=== PATIENT | female | born 1950 | race Caucasian/White ===

== ENCOUNTER 2018-08-30 02:06 | Emergency (ER) | payer BC, MEDICARE ==
--- NOTE | 2018-08-30 02:42 | ERPHSYRPT ---
- History of Present Illness Time Seen by Provider: 08/30/18 02:36 Historian: patient, family, EMS Exam Limitations: no limitations Physician History: The patient is a 67-year-old female with her brought in by ambulance from home where about 3 hours ago she had a sudden onset of generalized abdominal pain followed by nausea, vomiting, and diarrhea. The pain was intense but has now led up significantly. The pain currently is more on the right side. She denies fever or chills. Her past medical history is significant for HTN and GERD. Timing/Duration: today, hour(s) (3), sudden, improved Activities at Onset: none Quality: sharpness Abdominal Pain Onset Location: generalized abdomen Pain Radiation: flank (right) Severity of Pain-Max: severe Severity of Pain-Current: mild Modifying Factors: Improves With: defecating, vomiting Associated Symptoms: diarrhea, nausea, vomiting Previous symptoms: no prior history Allergies/Adverse Reactions: latex Allergy (Mild, Verified 08/30/18 02:51) Hives Home Medications: Lasix 10 mg PO DAILY 01/09/12 [History] Omeprazole Magnesium [Prilosec Otc] 20 mg PO DAILY 04/14/14 [History] Oxycodone HCl/Acetaminophen [Oxycodon-Acetaminophen 7.5-325] 1 tablet PO DAILY 04/14/14 [History] Potassium Chloride 10 Meq Tab* [Klor Con 10 MEQ] 10 meq PO DAILY 04/14/14 [ History] Hx Tetanus, Diphtheria Vaccination/Date Given: Yes Hx Influenza Vaccination/Date Given: No Hx Pneumococcal Vaccination/Date Given: Yes - Review of Systems Constitutional: No Fever, No Chills Eyes: No Symptoms Ears, Nose, & Throat: No Symptoms Respiratory: No Cough, No Dyspnea Cardiac: No Chest Pain, No Edema, No Syncope Abdominal/Gastrointestinal: Abdominal Pain, Nausea, Vomiting, Diarrhea Genitourinary Symptoms: No Dysuria Musculoskeletal: No Back Pain, No Neck Pain Skin: No Rash Neurological: No Dizziness, No Focal Weakness, No Sensory Changes Psychological: No Symptoms Endocrine: No Symptoms Hematologic/Lymphatic: No Symptoms Immunological/Allergic: No Symptoms All Other Systems: Reviewed and Negative - Past Medical History Pertinent Past Medical History: Yes Neurological History: No Pertinent History ENT History: No Pertinent History Cardiac History: Hypertension, Other Respiratory History: No Pertinent History Endocrine Medical History: No Pertinent History Musculoskeletal History: Other GI Medical History: GERD History: No Pertinent History Psycho-Social History: No Pertinent History Female Reproductive Disorders: No Pertinent History - Past Surgical History Past Surgical History: Yes Neuro Surgical History: No Pertinent History Cardiac: No Pertinent History Respiratory: No Pertinent History Gastrointestinal: Cholecystectomy Genitourinary: No Pertinent History Musculoskeletal: Orthopedic Surgery Female Surgical History: No Pertinent History Other Surgical History: NECK SURGERY-FROZE A JOINT 3&4. RECENT RIGHT ROTATOR CUFF - Social History Smoking Status: Never smoker Exposure to second hand smoke: No Drug Use: none Patient Lives Alone: No - Nursing Vital Signs Nursing Vital Signs: Initial Vital Signs Temperature 98.3 F 08/30/18 02:33 Pain Scale Pain Intensity 6 - Physical Exam General Appearance: no apparent distress, alert, obese Eye Exam: PERRL/EOMI, eyes nml inspection Ears, Nose, Throat Exam: normal ENT inspection, pharynx normal, moist mucous membranes Neck Exam: normal inspection, non-tender, supple, full range of motion Respiratory Exam: normal breath sounds, lungs clear, No respiratory distress Cardiovascular Exam: regular rate/rhythm, normal heart sounds Gastrointestinal/Abdomen Exam: tenderness (right side) Pelvic Exam: not done Rectal Exam: not done Back Exam: normal inspection, normal range of motion, No CVA tenderness, No vertebral tenderness Extremity Exam: normal inspection, normal range of motion, pelvis stable Neurologic Exam: alert, oriented x 3, cooperative, normal mood/affect, nml cerebellar function, sensation nml, No motor deficits Skin Exam: normal color, warm, dry SpO2 Interpretation: normal O2 Delivery: Room Air - CT Exams Abdomen/Pelvis CT Interpretation: Tele-radiologist Report (per Dr Dean), Other (moderate wall thickening of descending colon/colitis; diverticulosis) Ordered Tests: Active Orders 24 hr Category Date Time Status Clean Catch Urine Specimen STAT Care 08/30/18 02:41 Active IV Insertion STAT Care 08/30/18 02:41 Active ABDOMEN AND PELVIS W/0 CONTRAS [CT] Stat Exams 08/30/18 02:41 Taken AMYLASE Stat Lab 08/30/18 03:15 Completed CBC W DIFF Stat Lab 08/30/18 03:15 Completed CMP Stat Lab 08/30/18 03:15 Completed LIPASE Stat Lab 08/30/18 03:15 Completed Lactic Acid Stat Lab 08/30/18 03:14 Completed TROPONIN Q3H Lab 08/30/18 03:15 Completed TROPONIN Q3H Lab 08/30/18 05:45 Ordered TROPONIN Q3H Lab 08/30/18 08:45 Ordered TROPONIN Q3H Lab 08/30/18 11:45 Ordered TROPONIN Q3H Lab 08/30/18 14:45 Ordered UA W/RFX UR CULTURE Stat Lab 08/30/18 03:05 Completed Medication Summary Discontinued Medications Generic Name Dose Route Start Last Admin Trade Name Freq PRN Reason Stop Dose Admin Sodium Chloride 1,000 mls @ 999 mls/hr 08/30/18 02:41 08/30/18 03:30 Sodium Chloride 0.9% 1000 Ml IV 08/30/18 03:41 999 mls/hr .Q1H1M STA Administration Sodium Chloride Confirm 08/30/18 03:25 Sodium Chloride 0.9% 1000 Ml Administered 08/30/18 03:26 Dose 1,000 mls @ ud .ROUTE .STK-MED ONE Morphine Sulfate 4 mg 08/30/18 02:41 08/30/18 03:30 Morphine Sulfate 4 Mg Inj IV 08/30/18 02:42 4 mg STAT ONE Administration Morphine Sulfate Confirm 08/30/18 03:25 Morphine Sulfate 4 Mg Inj Administered 08/30/18 03:26 Dose 4 mg .ROUTE .STK-MED ONE Ondansetron HCl 4 mg 08/30/18 02:41 08/30/18 03:31 Zofran 4 Mg/2 Ml Vial IV 08/30/18 02:42 4 mg STAT ONE Administration Ondansetron HCl Confirm 08/30/18 03:25 Zofran 4 Mg/2 Ml Vial Administered 08/30/18 03:26 Dose 4 mg .ROUTE .STK-MED ONE Lab/Rad Data: Laboratory Result Diagrams 08/30/18 03:15 08/30/18 03:15 Laboratory Results 08/30/18 08/30/18 08/30/18 Range/Units 03:15 03:15 03:15 WBC 15.6 H (4.0-10.5) K/mm3 RBC 4.30 (4.1-5.4) M/mm3 Hgb 14.1 (12.0-16.0) gm/dl Hct 41.9 (35-47) % MCV 97.4 (78-100) fl MCH 32.8 H (26-32) pg MCHC 33.7 (32-36) g/dl RDW 11.9 (11.5-14.0) % Plt Count 246 (150-450) K/mm3 MPV 9.4 (6-9.5) fl Gran % 82.2 H (36.0-66.0) % Eos # (Auto) 0.20 (0-0.5) Absolute Lymphs (auto) 1.66 (1.0-4.6) Absolute Monos (auto) 0.88 (0.0-1.3) Lymphocytes % 10.6 L (24.0-44.0) % Monocytes % 5.6 (0.0-12.0) % Eosinophils % 1.3 (0.00-5.0) % Basophils % 0.3 (0.0-0.4) % Absolute Granulocytes 12.84 H (1.4-6.9) Basophils # 0.04 (0-0.4) Sodium 136 L (137-145) mmol/L Potassium 3.8 (3.5-5.1) mmol/L Chloride 97 L (98-107) mmol/L Carbon Dioxide 32 H (22-30) mmol/L Anion Gap 11.1 (5-15) MEQ/L BUN 16 (7-17) mg/dL Creatinine 0.85 (0.52-1.04) mg/dL Estimated GFR > 60.0 ML/MIN Glucose 218 H (74-106) mg/dL Lactic Acid (0.4-2.0) Calcium 9.4 (8.4-10.2) mg/dL Total Bilirubin 0.60 (0.2-1.3) mg/dL AST 29 (14-36) U/L ALT 28 (0-35) U/L Alkaline Phosphatase 79 (38-126) U/L Troponin I < 0.012 (0.000-0.034) ng/mL Serum Total Protein 8.0 (6.3-8.2) g/dL Albumin 4.3 (3.5-5.0) g/dL Amylase 38 (30-110) U/L Lipase 55 (23-300) U/L Urine Color (YELLOW) Urine Appearance (CLEAR) Urine pH (5-6) Ur Specific [place] (1.005-1.025) Urine Protein (Negative) Urine Ketones (NEGATIVE) Urine Blood (0-5) Antonio/ul Urine Nitrite (NEGATIVE) Urine Bilirubin (NEGATIVE) Urine Urobilinogen (0-1) mg/dL Ur Leukocyte Esterase (NEGATIVE) Urine WBC (Auto) (0-5) /HPF Urine RBC (Auto) (0-2) /HPF U Epithel Cells (Auto) (FEW) /HPF Urine Bacteria (Auto) (NEGATIVE) /HPF Urine Culture Reflexed (NO) Urine Glucose (NEGATIVE) mg/dL 08/30/18 08/30/18 Range/Units 03:14 03:05 WBC (4.0-10.5) K/mm3 RBC (4.1-5.4) M/mm3 Hgb (12.0-16.0) gm/dl Hct (35-47) % MCV (78-100) fl MCH (26-32) pg MCHC (32-36) g/dl RDW (11.5-14.0) % Plt Count (150-450) K/mm3 MPV (6-9.5) fl Gran % (36.0-66.0) % Eos # (Auto) (0-0.5) Absolute Lymphs (auto) (1.0-4.6) Absolute Monos (auto) (0.0-1.3) Lymphocytes % (24.0-44.0) % Monocytes % (0.0-12.0) % Eosinophils % (0.00-5.0) % Basophils % (0.0-0.4) % Absolute Granulocytes (1.4-6.9) Basophils # (0-0.4) Sodium (137-145) mmol/L Potassium (3.5-5.1) mmol/L Chloride (98-107) mmol/L Carbon Dioxide (22-30) mmol/L Anion Gap (5-15) MEQ/L BUN (7-17) mg/dL Creatinine (0.52-1.04) mg/dL Estimated GFR ML/MIN Glucose (74-106) mg/dL Lactic Acid 1.6 (0.4-2.0) Calcium (8.4-10.2) mg/dL Total Bilirubin (0.2-1.3) mg/dL AST (14-36) U/L ALT (0-35) U/L Alkaline Phosphatase (38-126) U/L Troponin I (0.000-0.034) ng/mL Serum Total Protein (6.3-8.2) g/dL Albumin (3.5-5.0) g/dL Amylase (30-110) U/L Lipase (23-300) U/L Urine Color YELLOW (YELLOW) Urine Appearance CLEAR (CLEAR) Urine pH 6.0 (5-6) Ur Specific [place] 1.008 (1.005-1.025) Urine Protein NEGATIVE (Negative) Urine Ketones NEGATIVE (NEGATIVE) Urine Blood NEGATIVE (0-5) Antonio/ul Urine Nitrite NEGATIVE (NEGATIVE) Urine Bilirubin NEGATIVE (NEGATIVE) Urine Urobilinogen NEGATIVE (0-1) mg/dL Ur Leukocyte Esterase SMALL (NEGATIVE) Urine WBC (Auto) 6-10 (0-5) /HPF Urine RBC (Auto) NONE (0-2) /HPF U Epithel Cells (Auto) NONE (FEW) /HPF Urine Bacteria (Auto) NONE (NEGATIVE) /HPF Urine Culture Reflexed NO (NO) Urine Glucose 50 (NEGATIVE) mg/dL - Progress Progress: improved Counseled pt/family regarding: lab results, diagnosis, rad results - Departure Time of Disposition: 04:50 Departure Disposition: Home Clinical Impression: Gastroenteritis and colitis, viral Condition: Stable Critical Care Time: No Referrals: JENNIFER MARTINEZ [Primary Care Provider] - Additional Instructions: You have vomiting and diarrhea (gastroenteritis and colitis). You were given morphine 4 mg, Zofran 4 mg, and fluids by IV in the ER. Take Zofran 4 mg ODT every 6 hours as needed for nausea and vomiting. Follow-up with your primary medical doctor in one to 2 days if needed. Prescriptions: Ondansetron ODT 4 MG [Zofran Odt 4 mg] 4 mg PO Q6H PRN PRN #10 tab.rapdis PRN Reason: Nausea/Vomiting
[2018-08-30 03:17] LABS: BASOPHIL % 0.3 % (0.0-0.4); Basophil (Absolute #) 0.04 (0-0.4); Eosinophil % 1.3 % (0.00-5.0); Granulocyte Absolute (ANC) 12.84 (1.4-6.9); Granulocytes % 82.2 % (36.0-66.0); Hematocrit 41.9 % (35-47); Hemoglobin 14.1 gm/dl (12.0-16.0); Lymphocyte (Absolute #) 1.66 (1.0-4.6); Lymphocytes % 10.6 % (24.0-44.0); Mean Cell Volume 97.4 fl (78-100); Mean Corpuscular Hemoglobin 32.8 pg (26-32); Mean Corpuscular Hgb Concent. 33.7 g/dl (32-36); Mean Platelet Volume 9.4 fl (6-9.5); Monocyte (Absolute #) 0.88 (0.0-1.3); Monocytes % 5.6 % (0.0-12.0); Platelet Count 246 K/mm3 (150-450); Red Cell Distribution Width 11.9 % (11.5-14.0); White Blood Count 15.6 K/mm3 (4.0-10.5)
[2018-08-30] MEDS ORDERED: Sodium Chloride 0.9% 1000 ML 1,000 ML ONE (03:25)
[2018-08-30] MEDS ORDERED: MORPHINE SULFATE 4 MG INJ ONE (03:25)
[2018-08-30] MEDS ORDERED: Zofran 4 MG/2 ML VIAL ONE (03:25)
[2018-08-30 03:28] LABS: ALBUMIN 4.3 g/dL (3.5-5.0); ALKALINE PHOSPHATASE 79 U/L (38-126); AMYLASE 38 U/L (30-110); ANION GAP 11.1 MEQ/L (5-15); BLOOD UREA NITROGEN 16 mg/dL (7-17); CHLORIDE 97 mmol/L (98-107); Calcium 9.4 mg/dL (8.4-10.2); Carbon Dioxide 32 mmol/L (22-30); Creatinine 1 0.85 mg/dL (0.52-1.04); Glucose 218 mg/dL (74-106); LIPASE 55 U/L (23-300); Potassium 3.8 mmol/L (3.5-5.1); SGOT/AST 29 U/L (14-36); SGPT/ALT 28 U/L (0-35); SODIUM 136 mmol/L (137-145)
[2018-08-30] MEDS: MORPHINE SULFATE 4 MG INJ IV ONE (03:30)
[2018-08-30] MEDS: Sodium Chloride 0.9% 1000 ML 1,000 ML IV STA (03:30)
[2018-08-30] MEDS: Zofran 4 MG/2 ML VIAL IV ONE (03:31)
[2018-08-30 03:44] LABS: Appearance CLEAR (CLEAR); Bilirubin NEGATIVE (NEGATIVE); Blood NEGATIVE Ery/ul (0-5); Glucose 50 mg/dL (NEGATIVE); Ketones NEGATIVE (NEGATIVE); Leukocyte Esterase SMALL (NEGATIVE); Nitrite NEGATIVE (NEGATIVE); Protein,Urine Dip NEGATIVE (Negative); Specific Gravity 1.008 (1.005-1.025); Urobilinogen NEGATIVE mg/dL (0-1)
[2018-08-30 04:58] VITALS: BP 121/78; PULSE 102; O2SAT 94
--- NOTE | 2018-08-30 09:07 | XRAY ---
Indication: Abdominal pain. Nausea, vomiting, diarrhea. Multiple contiguous axial images obtained through the abdomen and pelvis without contrast as ordered. Comparison: September 29, 2005. Lung bases demonstrates mild bibasilar dependent atelectasis and new right base calcified granuloma. No infiltrate or effusion. Heart is not enlarged. Stomach is distended with food/fluid. Noncontrasted stomach and bowel loops appear nonobstructed. Normal appendix. Descending colon now demonstrates mild circumferential wall thickening with minimal stranding favoring colitis. Mild sigmoid diverticulosis without diverticulitis. Again previous cholecystectomy. New 1.8 cm left ovary cyst. No free fluid/air. A few tiny calcified splenic granulomas. Remaining liver, pancreas, spleen, adrenal glands, kidneys, ureters, bladder, uterus, ovaries appear unremarkable for noncontrast exam. Moderate aortoiliac calcifications without AAA. Osseous structures intact with mild multilevel degenerative changes. No ventral or inguinal hernias. Impression: 1. Descending colon wall thickening with stranding favoring colitis. 2. Sigmoid diverticulosis without diverticulitis. Comment: Preliminary interpretation was made by [facility]. No critical discrepancy. CT DI 22.94
== END 2018-08-30 05:04 | disposition home or self-care (01) ==
LOC: ED 02:06
DX: K52.9 Noninfective gastroenteritis and colitis, unspecified (principal); A08.4 Viral intestinal infection, unspecified; K21.9 Gastro-esophageal reflux disease without esophagitis; I10 Essential (primary) hypertension
CPT/HCPCS: 36415; 74176; 80053; 81001; 82150; 83605; 83690; 84484; 85025; 96360; 96374; 96375; 99284; J2270; J2405

== ENCOUNTER 2019-01-14 21:25 | Emergency (ER) | payer BC, MEDICARE ==
[2019-01-14 21:49] VITALS: O2SAT 93
[2019-01-14] MEDS ORDERED: Zofran 4 MG/2 ML VIAL IV ONE (22:15)
[2019-01-14] MEDS ORDERED: MORPHINE SULFATE 4 MG INJ IV ONE (22:15)
[2019-01-14] MEDS ORDERED: Sodium Chloride 0.9% 1000 ML 1,000 ML IV SCH (22:15)
[2019-01-14] MEDS ORDERED: NITRO-BID 2% UD PACKETS TOP ONE (22:15)
[2019-01-14] MEDS ORDERED: Nitrostat 0.4 MG (ED) SL ONE ×3 (22:15→22:47)
--- NOTE | 2019-01-14 22:15 | ERPHSYRPT ---
- History of Present Illness Time Seen by Provider: 01/14/19 21:38 Historian: patient Exam Limitations: clinical condition Patient Subjective Stated Complaint: STATES STARTED HAVING CHEST PAIN ABOUT 2-3 HOURS AGO IN CENTER OF CHEST, RADIATING DOWN LEFT ARM. NO JAW PAIN, NO NAUSEA, VOMITING, DIAPHORESIS. TOOK 81MG ASPIRIN TODAY Triage Nursing Assessment: PT AMBULATED TO TREATMENT ROOM, C/O CHEST PAIN IN CENTER OF CHEST RADIATING TO LEFT ARM, NO C/O N/V OR DIAPHORESIS. SKIN PINK WARM AND DRY, RESP EASY. SR ON TECHNICAL ASSISTANCE CONSULTANT. Physician History: PATIENT WITH A HISTORY OF MYOCARDIAL INFARCTION 2016, STENT INSERTION X1 COMPLAINS OF SUBSTERNAL HEAVINESS OVER THE PAST 3 HOURS, PAIN SCALE INITIALLY 9/ 10, TOOK NITROGLYCERIN SUBLINGUAL AND 1 BABY ASPIRIN, PAIN SCALE IMPROVED TO 7/ 10. HAS ASSOCIATED DYSPNEA, RADIATION OF PAIN TO LEFT ARM Timing/Duration: today Activities at Onset: none Location: substernal Chest Pain Radiation: arm Severity of Pain-Max: severe Severity of Pain-Current: severe Modifying Factors: Improves With: nitroglycerin Associated Symptoms: shortness of breath Prior Chest Pain/Cardiac Workup: cardiac cath (MYOCARDIAL INFARCTION 2015) Nitro Today/Relief: 0.4 mg x 1, provided at home Aspirin Treatment Today: 81 mg x 1, provided at home Allergies/Adverse Reactions: latex Allergy (Mild, Verified 08/30/18 02:51) Hives Home Medications: Lasix 20 mg PO DAILY 01/09/12 [History] Oxycodone HCl/Acetaminophen [Oxycodon-Acetaminophen 7.5-325] 1 tablet PO Q4HPRN PRN 04/14/14 [History] Potassium Chloride 10 Meq Tab* [Klor Con 10 MEQ] 10 meq PO DAILY 04/14/14 [ History] Aspirin 81 mg PO DAILY 01/14/19 [History] Cyclobenzaprine HCl 10 mg [Cyclobenzaprine 10 MG] 10 mg PO BID 01/14/19 [ History] Esomeprazole Magnesium [Nexium] 40 mg PO DAILY 01/14/19 [History] Ezetimibe 10 mg [Zetia 10 MG] 10 mg PO DAILY 01/14/19 [History] Gabapentin 300 mg PO TID 01/14/19 [History] Hyoscyamine Sulfate 0.125 mg [Anaspaz 0.125 mg] 0.125 mg PO Q4H PRN PRN 03/27 [History] Isosorbide Mononitrate 60 mg [Imdur 60MG] 60 mg PO DAILY 01/14/19 [History] Magnesium Oxide 400 mg [Mag-Ox 400] 400 mg PO DAILY 01/14/19 [History] Metoprolol Tartrate 50 mg PO BID 01/14/19 [History] Simvastatin 20Mg [Zocor 20Mg] 20 mg PO DAILY 01/14/19 [History] Trazodone HCl 100 mg PO HS 01/14/19 [History] Hx Tetanus, Diphtheria Vaccination/Date Given: No Hx Influenza Vaccination/Date Given: Yes Hx Pneumococcal Vaccination/Date Given: No Immunizations Up to Date: Yes - Review of Systems Constitutional: No Fever, No Chills Eyes: No Symptoms Ears, Nose, & Throat: No Symptoms Respiratory: No Symptoms, Dyspnea, No Cough Cardiac: Chest Pain, No Edema, No Syncope Abdominal/Gastrointestinal: No Symptoms, No Abdominal Pain, No Nausea, No Vomiting, No Diarrhea Genitourinary Symptoms: No Symptoms, No Dysuria Musculoskeletal: No Symptoms, No Back Pain, No Neck Pain Skin: No Rash Neurological: No Dizziness, No Focal Weakness, No Sensory Changes Psychological: No Symptoms Endocrine: No Symptoms All Other Systems: Reviewed and Negative - Past Medical History Pertinent Past Medical History: Yes Neurological History: No Pertinent History ENT History: No Pertinent History Cardiac History: Hypertension, Other Respiratory History: No Pertinent History Endocrine Medical History: No Pertinent History Musculoskeletal History: Other GI Medical History: GERD History: No Pertinent History Psycho-Social History: No Pertinent History Female Reproductive Disorders: No Pertinent History - Past Surgical History Past Surgical History: Yes Neuro Surgical History: No Pertinent History Cardiac: Cardiac Catheterization Respiratory: No Pertinent History Gastrointestinal: Cholecystectomy Genitourinary: No Pertinent History Musculoskeletal: Orthopedic Surgery Female Surgical History: No Pertinent History Other Surgical History: NECK SURGERY-FROZE A JOINT 3&4. RECENT RIGHT ROTATOR CUFF. CARDIAC CATH WITH STENT PLACED IN 2014 - Social History Smoking Status: Never smoker Exposure to second hand smoke: No Drug Use: none Patient Lives Alone: No - Female History Hx Now: No - Nursing Vital Signs Nursing Vital Signs: Initial Vital Signs Temperature 99.0 F 01/14/19 21:26 Pulse Rate 80 01/14/19 21:26 Respiratory Rate 16 01/14/19 21:26 Blood Pressure 184/109 01/14/19 21:26 O2 Sat by Pulse Oximetry 93 L 01/14/19 21:26 Pain Scale Pain Intensity 6 - Physical Exam General Appearance: mild distress Eye Exam: PERRL/EOMI Ears, Nose, Throat Exam: normal ENT inspection Neck Exam: normal inspection Respiratory Exam: normal breath sounds Cardiovascular Exam: regular rate/rhythm Gastrointestinal/Abdomen Exam: soft, normal bowel sounds Back Exam: normal inspection, normal range of motion Extremity Exam: normal inspection, normal range of motion Neurologic Exam: alert, oriented x 3 Skin Exam: normal color SpO2 Interpretation: normal SpO2: 93 O2 Delivery: Room Air - Course EKG Interpreted by Me: RATE, Sinus Rhythm, NORMAL AXIS - Radiology Exams Chest X-ray Interpretation: Interpreted by me, Negative, No Infiltrates Ordered Tests: Active Orders 24 hr Category Date Time Status Bi Architect STAT Care 01/14/19 22:17 Active EKG-ER Only STAT Care 01/14/19 22:15 Active IV Insertion STAT Care 01/14/19 22:15 Active Oxygen-ED Only Nasal Cannula 2 lpm Care 01/14/19 22:15 Active CHEST 1 VIEW (PORTABLE) Stat Exams 01/14/19 22:16 Taken CBC W DIFF Stat Lab 01/14/19 22:33 Completed CMP Stat Lab 01/14/19 22:33 Completed D-DIMER QUANTITATION Stat Lab 01/14/19 22:33 Completed NT PRO BNP Stat Lab 01/14/19 22:33 Completed PROTIME WITH INR Stat Lab 01/14/19 22:33 Completed TROPONIN Q3H Lab 01/14/19 22:33 Completed Medication Summary Generic Name Dose Route Start Last Admin Trade Name Freq PRN Reason Stop Dose Admin Sodium Chloride 1,000 mls @ 50 mls/hr 01/14/19 22:15 01/14/19 22:28 Sodium Chloride 0.9% 1000 Ml IV 02/13/19 22:14 50 mls/hr .Q20H RAFITA Administration Discontinued Medications Generic Name Dose Route Start Last Admin Trade Name Freq PRN Reason Stop Dose Admin Enoxaparin Sodium 80 mg 01/14/19 23:44 01/15/19 00:08 Enoxaparin Sodium SQ 01/14/19 23:45 80 mg STAT ONE Administration Enoxaparin Sodium Confirm 01/15/19 00:07 Enoxaparin Sodium Administered 01/15/19 00:08 Dose 80 mg SQ .STK-MED ONE Morphine Sulfate 4 mg 01/14/19 22:15 01/14/19 22:33 Morphine Sulfate 4 Mg Inj IV 01/14/19 22:16 4 mg STAT ONE Administration Morphine Sulfate Confirm 01/14/19 22:24 Morphine Sulfate 4 Mg Inj Administered 01/14/19 22:25 Dose 4 mg .ROUTE .STK-MED ONE Nitroglycerin 0.4 mg 01/14/19 22:15 01/14/19 22:33 Nitrostat 0.4 Mg (Ed) SL 01/14/19 22:16 0.4 mg STAT ONE Administration Nitroglycerin 1 gm 01/14/19 22:15 01/14/19 22:33 Nitro-Bid 2% Ud Packets TOP 01/14/19 22:16 1 gm STAT ONE Administration Nitroglycerin Confirm 01/14/19 22:24 Nitro-Bid 2% Ud Packets Administered 01/14/19 22:25 Dose 1 gm .ROUTE .STK-MED ONE Nitroglycerin Confirm 01/14/19 22:24 Nitrostat 0.4 Mg (Ed) Administered 01/14/19 22:25 Dose 0.4 mg SL .STK-MED ONE Nitroglycerin 0.4 mg 01/14/19 22:47 01/14/19 22:49 Nitrostat 0.4 Mg (Ed) SL 01/14/19 22:48 0.4 mg STAT ONE Administration Ondansetron HCl 4 mg 01/14/19 22:15 01/14/19 22:34 Zofran 4 Mg/2 Ml Vial IV 01/14/19 22:16 4 mg STAT ONE Administration Ondansetron HCl Confirm 01/14/19 22:24 Zofran 4 Mg/2 Ml Vial Administered 01/14/19 22:25 Dose 4 mg .ROUTE .STK-MED ONE Lab/Rad Data: Laboratory Result Diagrams 01/14/19 22:33 01/14/19 22:33 Laboratory Results 01/14/19 01/14/19 01/14/19 Range/Units 22:33 22:33 22:33 WBC (4.0-10.5) K/mm3 RBC (4.1-5.4) M/mm3 Hgb (12.0-16.0) gm/dl Hct (35-47) % MCV (78-100) fl MCH (26-32) pg MCHC (32-36) g/dl RDW (11.5-14.0) % Plt Count (150-450) K/mm3 MPV (6-9.5) fl Gran % (36.0-66.0) % Eos # (Auto) (0-0.5) Absolute Lymphs (auto) (1.0-4.6) Absolute Monos (auto) (0.0-1.3) Lymphocytes % (24.0-44.0) % Monocytes % (0.0-12.0) % Eosinophils % (0.00-5.0) % Basophils % (0.0-0.4) % Absolute Granulocytes (1.4-6.9) Basophils # (0-0.4) PT 11.1 (9.95-12.35) SECONDS INR 0.95 (0.8-3.0) D-Dimer 479 (215-500) ng/mL Sodium (137-145) mmol/L Potassium (3.5-5.1) mmol/L Chloride (98-107) mmol/L Carbon Dioxide (22-30) mmol/L Anion Gap (5-15) MEQ/L BUN (7-17) mg/dL Creatinine (0.52-1.04) mg/dL Estimated GFR ML/MIN Glucose (74-106) mg/dL Calcium (8.4-10.2) mg/dL Total Bilirubin (0.2-1.3) mg/dL AST (14-36) U/L ALT (0-35) U/L Alkaline Phosphatase (38-126) U/L Troponin I < 0.012 (0.000-0.034) ng/mL NT-Pro-B Natriuret Pep (0-900) pg/mL Serum Total Protein (6.3-8.2) g/dL Albumin (3.5-5.0) g/dL 01/14/19 01/14/19 Range/Units 22:33 22:33 WBC 6.7 (4.0-10.5) K/mm3 RBC 3.90 L (4.1-5.4) M/mm3 Hgb 12.8 (12.0-16.0) gm/dl Hct 38.0 (35-47) % MCV 97.4 (78-100) fl MCH 32.8 H (26-32) pg MCHC 33.7 (32-36) g/dl RDW 11.7 (11.5-14.0) % Plt Count 225 (150-450) K/mm3 MPV 9.7 H (6-9.5) fl Gran % 49.6 (36.0-66.0) % Eos # (Auto) 0.29 (0-0.5) Absolute Lymphs (auto) 2.39 (1.0-4.6) Absolute Monos (auto) 0.62 (0.0-1.3) Lymphocytes % 35.8 (24.0-44.0) % Monocytes % 9.3 (0.0-12.0) % Eosinophils % 4.3 (0.00-5.0) % Basophils % 1.0 (0.0-0.4) % Absolute Granulocytes 3.31 (1.4-6.9) Basophils # 0.07 (0-0.4) PT (9.95-12.35) SECONDS INR (0.8-3.0) D-Dimer (215-500) ng/mL Sodium 140 (137-145) mmol/L Potassium 4.4 (3.5-5.1) mmol/L Chloride 99 (98-107) mmol/L Carbon Dioxide 33 H (22-30) mmol/L Anion Gap 13.1 (5-15) MEQ/L BUN 11 (7-17) mg/dL Creatinine 0.80 (0.52-1.04) mg/dL Estimated GFR > 60.0 ML/MIN Glucose 155 H (74-106) mg/dL Calcium 9.4 (8.4-10.2) mg/dL Total Bilirubin 0.30 (0.2-1.3) mg/dL AST 27 (14-36) U/L ALT 18 (0-35) U/L Alkaline Phosphatase 64 (38-126) U/L Troponin I (0.000-0.034) ng/mL NT-Pro-B Natriuret Pep 105 (0-900) pg/mL Serum Total Protein 7.5 (6.3-8.2) g/dL Albumin 3.9 (3.5-5.0) g/dL - Progress Progress: improved Progress Note: 01/14/19 23:53 ADMINISTERED BABY ASA X 3, NTG SL X 2, APPLICATION NITROPASTE 1" ANTERIOR CHEST WALL, ZOFRAN 4MG, MORPHINE 4MG IV. CHEST PAIN IMPROVED TO PAIN SCALE 3/10, LOVENOX 80MG SUBQ 01/15/19 01:24, 01/15/19 01:27 Discussed with : Other (DISCUSSED WITH DR MANDEL AT 0030 ACCEPTS TRANSFER TO [facility]) - Departure Departure Disposition: Transfer Clinical Impression: ACUTE CHEST PAIN Condition: Stable Critical Care Time: No Referrals: JENNIFER MARTINEZ [Primary Care Provider] - Additional Instructions: CONTINUE ALL CURRENT MEDICATIONS. CONSULTY YOUR PRIMARY CARE PROVIDER FOR FOLLOWUP WELL YOUR ECONOMICS PROFESSOR. RETURN TO EMERGENCY ROOM FOR CHEST PAIN.
[2019-01-14] MEDS ORDERED: NITRO-BID 2% UD PACKETS ONE (22:24)
[2019-01-14] MEDS ORDERED: MORPHINE SULFATE 4 MG INJ ONE (22:24)
[2019-01-14] MEDS ORDERED: Zofran 4 MG/2 ML VIAL ONE (22:24)
[2019-01-14] MEDS ORDERED: Sodium Chloride 0.9% 1000 ML 1,000 ML ONE (22:25)
[2019-01-14 22:29] LABS: Basophil (Absolute #) 0.07 (0-0.4); Eosinophil % 4.3 % (0.00-5.0); Eosinophil (Absolute #) 0.29 (0-0.5); Granulocyte Absolute (ANC) 3.31 (1.4-6.9); Granulocytes % 49.6 % (36.0-66.0); Hemoglobin 12.8 gm/dl (12.0-16.0); Lymphocyte (Absolute #) 2.39 (1.0-4.6); Lymphocytes % 35.8 % (24.0-44.0); Mean Cell Volume 97.4 fl (78-100); Mean Corpuscular Hemoglobin 32.8 pg (26-32); Mean Corpuscular Hgb Concent. 33.7 g/dl (32-36); Mean Platelet Volume 9.7 fl (6-9.5); Monocyte (Absolute #) 0.62 (0.0-1.3); Monocytes % 9.3 % (0.0-12.0); Platelet Count 225 K/mm3 (150-450); Red Cell Distribution Width 11.7 % (11.5-14.0); White Blood Count 6.7 K/mm3 (4.0-10.5)
[2019-01-14 22:35] LABS: INR 0.95 (0.8-3.0); PROTIME 11.1 SECONDS (9.95-12.35)
[2019-01-14 22:49] LABS: ALBUMIN 3.9 g/dL (3.5-5.0); ALKALINE PHOSPHATASE 64 U/L (38-126); ANION GAP 13.1 MEQ/L (5-15); BLOOD UREA NITROGEN 11 mg/dL (7-17); CHLORIDE 99 mmol/L (98-107); Calcium 9.4 mg/dL (8.4-10.2); Carbon Dioxide 33 mmol/L (22-30); Glucose 155 mg/dL (74-106); NT PRO BNP 105 pg/mL (0-900); Potassium 4.4 mmol/L (3.5-5.1); SGOT/AST 27 U/L (14-36); SGPT/ALT 18 U/L (0-35); SODIUM 140 mmol/L (137-145); Total Protein 7.5 g/dL (6.3-8.2)
[2019-01-14] MEDS ORDERED: ENOXAPARIN SODIUM SQ ONE (23:44)
[2019-01-15] MEDS ORDERED: ENOXAPARIN SODIUM SQ ONE (00:07)
[2019-01-15 01:54] VITALS: BP 141/75; PULSE 68
--- NOTE | 2019-01-15 07:22 | XRAY ---
Indication: Dyspnea. Chest pain. Comparison: April 14, 2014. Portable apical lordotic chest demonstrates minimal left mid lung peripheral fibrosis/scarring. Remaining heart and lungs normal. Bony thorax intact again with mild degenerative changes and partially visualized lower cervical hardware.
== END 2019-01-15 01:56 | disposition short-term general hospital (02) ==
LOC: ED 21:25
DX: R07.9 Chest pain, unspecified (principal); I10 Essential (primary) hypertension; I25.2 Old myocardial infarction; Z79.899 Other long term (current) drug therapy
CPT/HCPCS: 36000; 36415; 71045; 80053; 83880; 84484; 85025; 85379; 85610; 93005; 93041; 96372; 96374; 96375; 99285; 99291; J1650; J2270; J2405; A9270-GY

== ENCOUNTER 2019-09-19 06:09 | Day surgery (SDC) | payer BC, MEDICARE ==
[2019-09-19] MEDS ORDERED: Lactated Ringers 1,000 ML IV SCH (06:30)
[2019-09-19] MEDS ORDERED: SUBLIMAZE 100 MCG/2 ML ONE (07:52)
[2019-09-19] MEDS ORDERED: DIPRIVAN 200 MG/20 ML IV ONE (07:52)
[2019-09-19] MEDS ORDERED: Decadron 4 MG INJ ONE (08:10)
[2019-09-19] MEDS ORDERED: TORAdol 30 mg Injection ONE (08:10)
[2019-09-19] MEDS ORDERED: Zofran 4 MG/2 ML VIAL ONE (08:10)
[2019-09-19 09:25] VITALS: O2SAT 95
[2019-09-19 09:45] VITALS: BP 129/78; PULSE 85
--- NOTE | 2019-09-20 12:43 | OP ---
SURGERY DATE/TIME: 09/19/2019 0752 PREOPERATIVE DIAGNOSES: 1) Thickened endometrium. 2) Endometrial polyp. POSTOPERATIVE DIAGNOSES: 1) Thickened endometrium. 2) Endometrial polyp. 3) Endometrial lesion. PROCEDURE: Hysteroscopy, D&C with resection of endometrial lesion. SURGEON: French Gary D.O. GROUND WIRER: senior telecommunications technician. ANESTHESIA: General. ESTIMATED BLOOD LOSS: Minimal. COMPLICATIONS: None. INDICATIONS: The risks, benefits, indications and alternatives of the procedure were reviewed with the patient prior to procedure. The patient understood the risk of infection, bleeding, bowel injury, bladder injury, ureteral injury and uterine perforation associated with the surgery and desires to have this surgery as a possible need to alleviate her current medical condition. DESCRIPTION OF PROCEDURE AND FINDINGS: At this point the patient is taken to the operating room, given general sedation, placed in dorsal lithotomy position. Prepped and draped in the usual sterile fashion. A weighted speculum is then placed in the patient's vagina and the anterior lip of the cervix is grasped with a single tooth tenaculum. Endocervical dilators advanced to the endocervical canal as a means to dilate the cervix and at this point a 5 mm hysteroscope was then placed in through the endocervical canal where visualization of the uterine lining appeared to have two endometriotic lesions/polypoid lesions appearing just on the posterior surface approximately 1 x 1 cm in dimension for each of them. From this point the MyoSure was then introduced into the endocervical canal where the MyoSure was then turned on and resection of the polypoid lesions were removed without any kind of complication with no bleeding that was noted. After completion of the MyoSure removal of the endometrial lesion there were no gross abnormalities within the endometrial canal. From this point the MyoSure was removed and curette was then placed into the fundus of the uterus and curettage was performed in all quadrants of the uterus retrieving mild amount of tissue. From this point all instruments were then subsequently removed from the patient's vaginal region. The patient was then taken out of the dorsal lithotomy position, was taken out of anesthesia and was then taken to the recovery room in stable condition. All instruments and laps were accounted for x2.
== END 2019-09-19 09:49 | disposition home or self-care (01) ==
LOC: SDC 06:09
PROVIDERS: ATTEND Obstetrics & Gynecology
DX: N84.0 Polyp of corpus uteri (principal); R93.89 Abnormal findings on diagnostic imaging of other specified body structures; Z79.899 Other long term (current) drug therapy; I10 Essential (primary) hypertension
CPT/HCPCS: 58558; 88305; J1100; J1885; J2405; J2704; J3010

== ENCOUNTER 2024-08-30 06:11 | Day surgery (SDC) | payer MEDICARE, OTHER ==
[2024-08-30] MEDS: CEFAZOLIN 2 GM/100 ML NaCl 2 GM/100 ML IVPB IV SCH (06:26)
[2024-08-30] MEDS: Lactated Ringers 1,000 ML IV SCH (06:26)
[2024-08-30 06:45] LABS: Absolute Neutrophil Ct (ANC) 2.63 x10^3/uL (1.56-6.13); BASOPHIL % 1.4 % (0.1-1.2); Basophil (Absolute #) 0.07 x10^3/uL (0.01-0.08); Eosinophil % 5.3 % (0.7-5.8); Eosinophil (Absolute #) 0.26 x10^3/uL (0.04-0.36); Hematocrit 35.4 % (34.1-44.9); IMMATURE GRAN # 0.02 x10^3u/L (0.001-0.031); IMMATURE GRAN % 0.4 % (0.001-0.429); Lymphocyte (Absolute #) 1.52 x10^3/uL (1.18-3.74); Lymphocytes % 30.8 % (19.3-51.7); Mean Cell Volume 94.9 fL (79.4-94.8); Mean Corpuscular Hemoglobin 32.2 pg (25.6-32.2); Mean Corpuscular Hgb Concent. 33.9 g/dL (32.2-35.5); Mean Platelet Volume 9.5 fL (9.4-12.3); Monocyte (Absolute #) 0.44 x10^3/uL (0.24-0.86); Monocytes % 8.9 % (4.7-12.5); Neutrophil % 53.2 % (34.0-71.1); Platelet Count 212 x10^3/uL (182-369); Red Blood Count 3.73 x10^6/uL (3.93-5.22); Red Cell Distribution Width 11.6 % (11.7-14.4); White Blood Count 4.9 x10^3/uL (3.98-10.04)
[2024-08-30 06:50] VITALS: RESP 18
[2024-08-30 06:59] LABS: INR 0.99 (0.8-3.0); PROTIME 10.8 SECONDS (9.4-12.5); PTT 27.9 SECONDS (25.1-36.5)
[2024-08-30 07:05] LABS: ANION GAP 11.2 MEQ/L (5-15); BILIRUBIN,TOTAL 0.3 mg/dL (0.2-1.3); Calcium 9.3 mg/dL (8.4-10.2); Creatinine 1 1.2 mg/dL (0.52-1.04); EST GLOMERULAR FILTRATION RATE 48.4 ML/MIN; Potassium 4.2 mmol/L (3.5-5.1); Total Protein 7.3 g/dL (6.3-8.2)
--- NOTE | 2024-08-30 07:10 | XRAY ---
CLINICAL HISTORY: pre op COMPARISON: No prior studies are available for comparison. TECHNIQUE: An X-ray image of the chest was obtained in AP projection. FINDINGS: Pulmonary Parenchyma: No evidence of consolidation, collapse, or focal opacities. No pulmonary nodules are identified. Mild prominent bronchovascular markings No evidence of pleural effusion or pleural thickening. Heart and Mediastinum: Calcific atherosclerotic plaques of the aorta. Heart size and shape are normal. No mediastinal widening or masses. No hilar or mediastinal lymphadenopathy. Bony Thorax: Thoracic spondylosis is seen as sclerosed end plates and osteophytes. Bilateral acromioclavicular joint arthropathy. Bony thorax appears intact without fractures or deformities. Soft Tissues: Soft tissues overlying the chest wall are unremarkable. IMPRESSION: 1. No acute cardiopulmonary abnormalities are identified. 2. Mild prominent bronchovascular markings. 3. Calcific atherosclerotic plaques of the aorta. 4. Thoracic spondylosis. 5. Bilateral acromioclavicular joint arthropathy. Electronically Signed by: Kenia Aponte MD. (08/30/2024 07:05:36 EST)
[2024-08-30] MEDS ORDERED: propofoL IV ONE (07:52)
[2024-08-30] MEDS ORDERED: Zofran 4 MG/2 ML VIAL ONE (07:52)
[2024-08-30] MEDS ORDERED: SUBLIMAZE 100 MCG/2 ML ONE ×2 (07:52→10:05)
[2024-08-30] MEDS ORDERED: Versed 2 MG/2 ML Injection ONE (07:52)
[2024-08-30] MEDS ORDERED: dexAMETHasone sodium phosphate ONE (07:52)
[2024-08-30] MEDS ORDERED: Xylocaine-Mpf 2% 5 Ml Vial ONE (07:52)
[2024-08-30] MEDS ORDERED: MARCAINE 0.25% PF/ EPI 1:200,000 ONE (09:03)
[2024-08-30] MEDS ORDERED: Hydromorphone 1 mg/ml Injection ONE (10:18)
[2024-08-30 10:55] VITALS: O2SAT 92
[2024-08-30 11:04] VITALS: BP 132/60
[2024-08-30 11:18] VITALS: PULSE 70; TEMP 98.3
--- NOTE | 2024-08-31 13:33 | OP ---
DATE OF SURGERY: 08/30/2024 [id number] PREOPERATIVE DIAGNOSES: 1) Right knee pain. 2) Right knee medial meniscus tear. 3) Right knee lateral meniscus tear. POSTOPERATIVE DIAGNOSES: 1) Right knee pain. 2) Right knee medial meniscus tear. 3) Chondromalacia of femoral sulcus. 4) Medial synovial plica. PROCEDURE PERFORMED: 1) Diagnostic arthroscopy, right knee. 2) Partial medial meniscectomy. 3) Partial synovectomy, medial compartment. INDICATIONS: This patient has been followed in the office for right knee pain that is primarily medial. Radiographs showed no significant joint space narrowing but MRI showed horizontal tear of lateral meniscus and flap to her medial meniscus. Because of ongoing symptoms, we discussed surgical management. The procedure, risks, and benefits were discussed with her. Consent was obtained. DESCRIPTION OF PROCEDURE: The patient was seen preoperatively and the operative limb was identified and confirmed with initial. Then, the operative plan was reviewed. She was given Ancef 2 g IV. She was taken to the operating room and placed under general anesthesia and placed supine on the OR table. The foot of the bed was flexed 90 degrees at the knee. We applied a tourniquet to the right thigh and then secured the right thigh in a leg holding device. Sterile prep and drape to the right lower extremity from the thigh to the toes was carried out. We exsanguinated the limb with an Esmarch and then inflated tourniquet to 300 mmHg. A lateral infrapatellar portal was established and the arthroscope was advanced into the full-extended knee joint. Examination was commenced. Moderate grade chondromalacia of the patella and of the central sulcus were identified. The medial gutter was examined. No loose bodies were seen. There was a moderate sized medial synovial plica and thickening of the anterior-inferior patellar fat pad. Advancing to the medial joint space, we noted mild to moderate chondromalacia as well with a flap tear of the medial meniscus. There was full-thickness chondromalacia underneath the posterior horn of the medial meniscus. Once the tear was identified and probed, we inserted the shaver and used the shaver to debride the unstable meniscal fragment back to a stable rim. We repeated our probing of the medial meniscus and identified no other loose flaps on the undersurface or femoral surface. We then examined the ACL, which was intact. Lateral joint space was examined with the knee in figure-four position. Articular cartilage was well-maintained in the lateral joint space and the lateral meniscus appeared to be stable without visible tearing of the femoral or tibial surface. Vigorous probing elicited no unstable fragments or tearing that extended to the surface. Returning to the medial side, we debrided the synovium from the inferior fat pad, extending up to and including the medial plica. We then lightly abraded the sulcus region where a loose flap was identified. We reexamined the entire knee, seeing no loose bodies or additional pathology that was amenable to arthroscopic abrasion or shaving. The procedure was terminated and the excess fluid drained. We injected each portal site with 5 mL of 0.25% Marcaine with epinephrine followed by injection of 10 additional mL into the joint itself. The portals were closed with interrupted nylon and sterile dressings were applied. Tourniquet was released. Patient was taken to the recovery room in stable condition.
== END 2024-08-30 11:35 | disposition home or self-care (01) ==
LOC: SDC 06:11
PROVIDERS: ATTEND Orthopaedic Surgery
DX: S83.281A Other tear of lateral meniscus, current injury, right knee, initial encounter (principal); S83.241A Other tear of medial meniscus, current injury, right knee, initial encounter; M17.11 Unilateral primary osteoarthritis, right knee; M23.361 Other meniscus derangements, other lateral meniscus, right knee; I10 Essential (primary) hypertension; E78.5 Hyperlipidemia, unspecified; Z79.01 Long term (current) use of anticoagulants; M25.561 Pain in right knee; M94.261 Chondromalacia, right knee; M67.51 Plica syndrome, right knee
CPT/HCPCS: 29881; 36415; 71045; 80053; 85025; 85610; 85730; 93005; 99100; J0690; J1100; J1171; J2250; J2405; J2704; J3010

== ENCOUNTER 2024-12-07 08:45 | Day surgery (SDC) | payer MEDICARE, OTHER ==
[2024-12-07] MEDS ORDERED: Lactated Ringers 1,000 ML IV ONE (08:47)
[2024-12-07] MEDS: Lactated Ringers 1,000 ML IV SCH (08:58)
[2024-12-07] MEDS ORDERED: propofoL IV ONE (10:15)
[2024-12-07] MEDS ORDERED: Xylocaine-Mpf 2% 5 Ml Vial ONE (10:15)
[2024-12-07 11:03] VITALS: RESP 16
[2024-12-07 11:20] VITALS: BP 135/99; PULSE 74; TEMP 98.5; O2SAT 98
--- NOTE | 2024-12-11 07:52 | OP ---
SURGERY DATE/TIME: 12/07/2024 [id number] PREOPERATIVE DIAGNOSIS: Dysphagia. POSTOPERATIVE DIAGNOSIS: Esophageal stricture. PROCEDURE: Esophagogastroduodenoscopy with Le, i.e., traditional mechanical dilatation, size 48. SURGEON: Nhan Santoro MD ANESTHESIA: General. COMPLICATIONS: None. CONDITION: Stable. DESCRIPTION OF PROCEDURE AND FINDINGS: Patient brought to the endoscopy. Left lateral decubitus position. Scope introduced. Vocal cords were normal. Pharyngoesophageal junction normal. Esophagus normal down to EG junction. Initially this is about a size 40. Fundus, body, and antrum normal. Pylorus normal. Duodenal bulb normal. Second portion normal. Scope looped on itself. No hiatal hernia. Scope was brought back. This was straight on. The size 48 bougie was very carefully placed. The scope was introduced. It looked excellent. The EG junction was size 48 at this moment. Patient tolerated the procedure satisfactorily.
== END 2024-12-07 11:25 | disposition home or self-care (01) ==
LOC: SDC 08:45
PROVIDERS: ATTEND Surgery
DX: K22.2 Esophageal obstruction (principal); R13.10 Dysphagia, unspecified; E11.9 Type 2 diabetes mellitus without complications
CPT/HCPCS: 82947; J2704